=== PATIENT | female | born 1970 | race Caucasian/White ===

== ENCOUNTER 2022-10-10 14:56 | Outpatient (CLI) | payer MEDICAID, SELFPAY ==
--- NOTE | 2022-10-10 | MR_ITS ---
WS: [id number] MRI CERVICAL SPINE NONCONTRAST TECHNIQUE: Sagittal T1, T2 and STIR imaging. Axial T2, gradient, and fiesta imaging. CLINICAL INFORMATION: SPONDYLOSIS COMPARISON: None. FINDINGS: Straightening of the normal cervical lordosis. Cord signal is normal. Mild disc bulging C5-C6 and C6- C7 appears progressed compared to 2014. Mild cervical curve. C2-C3: Normal. C3-C4: Mild facet arthropathy. Spinal canal and foramen are patent. C4-C5: No significant disc bulging. Mild facet arthropathy. Mild LEFT and no significant RIGHT forami nal narrowing. Spinal canal is patent. C5-C6: Shallow RIGHT pericentral protrusion with a small annular fissure. Impingement on the RIGHT ve ntral cervical cord with mild central canal stenosis. Moderate facet arthropathy. Mild LEFT and no si gnificant RIGHT foraminal narrowing. C6-C7: Disc osteophyte complex with endplate ridging eccentric to the LEFT. Moderate LEFT and mild RI GHT bony foraminal narrowing. Shallow central protrusion. C7-T1: No significant disc bulging. Moderate LEFT and mild RIGHT bony foraminal narrowing. Mild facet arthropathy. Additional tiny shallow central protrusions at T2-T3 and T3-T4 upper thoracic spine. Mild LEFT T3-T4 foraminal narrowing with a tiny LEFT foraminal protrusion. Visualized brain stem structures: Normal. Prevertebral soft tissues: Normal. MR/MR cervical spin wo con* [id number] IMPRESSION: 1. Straightening of the normal cervical lordosis. Cord signal is normal. 2. RIGHT pericentral protrusion C5-C6 with indentation on cervical cord progre ssed since 2013 with mild central canal stenosis. Tiny amount of myelomalacia i n the cervical cord at this level. 3. Tiny shallow central protrusion C6-C7 with slight effacement of the ventral thecal sac. 4. Moderate LEFT C6-C7 and LEFT C7-T1 bony foraminal narrowing. 5. Tiny shallow central protrusions in the upper thoracic spine at T2-T3 and T 3-T4 without significant central canal stenosis. 6. Mild LEFT T3-T4 foraminal narrowing with a tiny LEFT proximal foraminal pro trusion. 7. Mild to moderate facet arthropathy C4-C6.
--- NOTE | 2022-10-10 | MR_ITS ---
WS: [id number] MRI LUMBAR SPINE NONCONTRAST TECHNIQUE: Sagittal T1, T2 and STIR imaging. Axial T1 and T2 imaging. CLINICAL INFORMATION: SPONDYLOSIS COMPARISON: None. FINDINGS: Mild lumbar curve. No acute compression. Grade 2 anterolisthesis L5 on S1 measuring 12.5 mm. This is slightly progressed compared to 2014. Previously this measured approximately 11.1 mm. Chronic spondyl olysis at this level. L1-L2: No significant disc bulging. Moderate facet arthropathy. Spinal canal and foramen are patent. L2-L3: Mild annular bulging. Moderate facet arthropathy. Small facet effusions. Tiny LEFT foraminal p rotrusion with mild LEFT foraminal narrowing. Progressed compared to previous. L3-L4: No significant disc bulging. Moderate facet arthropathy. Spinal canal and foramen are patent. L4-L5: Mild annular bulging with slight effacement of the ventral thecal sac. Slight impingement on t he traversing L5 nerve roots bilaterally. This is stable compared to previous. Moderate facet arthrop athy. Mild RIGHT and no significant LEFT foraminal narrowing. L5-S1: Chronic spondylolysis with grade 2 anterolisthesis. Moderate LEFT greater than RIGHT foraminal narrowing with impingement on the exiting LEFT greater than RIGHT L5 nerve roots. Moderate central c anal stenosis. This appears slightly progressed compared to previous. Disc space narrowing at this le amita has progressed. Disc space narrowing at T11-T12 has also progressed slightly compared to previous. Visualized pelvic bony structures: Normal. Paravertebral soft tissues: Normal. MR/MR lumbar spine wo con* [id number] IMPRESSION: 1. Grade 2 anterolisthesis L5 on S1 with chronic spondylolysis slightly progre ssed compared to previous. Disc Space narrowing at this level has progressed. 2. Progressed moderate central canal stenosis L5-S1 with moderate LEFT greater than RIGHT foraminal narrowing. 3. Mild annular bulging L4-L5 with a shallow central protrusion and slight enc roachment traversing L5 nerve roots bilaterally. This is unchanged from previou s.. 4. Small LEFT foraminal protrusion L2-L3 slightly contacts the exiting LEFT L2 nerve root progressed compared to previous. 5. Moderate facet arthropathy L2-L3, L3-L4, L4-L5, and advanced L5-S1.
== END 2022-10-10 14:57 | disposition home or self-care (01) ==
LOC: RAD 14:57
PROVIDERS: PCP Family Medicine; Visit Provider Family Medicine
DX: M47.816 Spondylosis without myelopathy or radiculopathy, lumbar region (principal); M47.812 Spondylosis without myelopathy or radiculopathy, cervical region; M51.26 Other intervertebral disc displacement, lumbar region; M48.07 Spinal stenosis, lumbosacral region; M47.817 Spondylosis without myelopathy or radiculopathy, lumbosacral region; M50.222 Other cervical disc displacement at C5-C6 level; M51.24 Other intervertebral disc displacement, thoracic region
CPT/HCPCS: 72141; 72148

== ENCOUNTER 2023-10-09 06:00 | Outpatient (RCR) | payer MEDICAID, SELFPAY | END 2023-10-20 23:59 | disposition home or self-care (01) | LOC: GPT 06:00 | PROVIDERS: PCP Family Medicine; Visit Provider General Practice | DX: M54.9 Dorsalgia, unspecified (principal); G89.29 Other chronic pain | CPT/HCPCS: 97162 ==

== ENCOUNTER 2023-10-21 06:00 | Outpatient (RCR) | payer MEDICAID, SELFPAY | END 2023-11-19 23:59 | disposition home or self-care (01) | LOC: GPT 06:00 | PROVIDERS: PCP Family Medicine; Visit Provider General Practice | DX: M54.9 Dorsalgia, unspecified (principal); G89.29 Other chronic pain | CPT/HCPCS: 97110 ==

== ENCOUNTER 2023-11-26 10:31 | Outpatient (CLI) | payer MEDICAID, SELFPAY ==
--- NOTE | 2023-11-26 10:40 | XRR_ITS ---
PROCEDURE INFORMATION: Exam: XR Lumbosacral Spine Exam date and time: 11/26/2023 10:48 AM Age: 52 years old Clinical indication: Low back pain; Prior surgery; Surgery date: 6+ months; Surgery type: Spinal fusion l4-s1 in November of 2022; Patient HX: --pain on left side and weakness in legs for several years feels no difference from surgery; Additional info: Arthrodesis status TECHNIQUE: Imaging protocol: Radiologic exam of the lumbosacral spine. Views: 2 or 3 views. COMPARISON: MR lumbar spine wo con* [id number] 10/10/2022 3:35 PM FINDINGS: Bones/joints: Posterior spinal fixation hardware extending from L4-S1. The lumbar spine demonstrates a mildly exaggerated lordotic curvature. Grade 2 anterolisthesis of L5 on S1. The vertebral bodies maintain normal height. The intervertebral discs maintain normal height. Soft tissues: Unremarkable. XR/XR lumbar spine 2-3V* [id number] IMPRESSION: Lumbosacral fixation hardware appears intact.
--- NOTE | 2023-11-26 10:40 | XRR_ITS ---
PROCEDURE INFORMATION: Exam: XR Bilateral Hips Exam date and time: 11/26/2023 10:48 AM Age: 52 years old Clinical indication: Hip pain; Bilateral; Prior surgery; Surgery date: 6+ months; Surgery type: Spinal fusion l4-s1 in November of 2022; Patient HX: Pain on left side and weakness in legs for several years feels no difference from surgery; Additional info: Hip pain, to include pelvis TECHNIQUE: Imaging protocol: Radiologic exam of the bilateral hips. Views: 2 views of hips with pelvis when performed. COMPARISON: CR XR lumbar spine 2-3V* [id number] 11/26/2023 10:48 AM FINDINGS: Bones/joints: The pelvis is grossly intact. The hip joints maintain normal alignment. No proximal femoral fracture identified. Soft tissues: Unremarkable. XR/XR hip BI 2V wo/w pel [id number] IMPRESSION: No fracture identified.
== END 2023-11-26 10:32 | disposition home or self-care (01) ==
LOC: RAD 10:33
PROVIDERS: PCP Family Medicine; Visit Provider Nurse Practitioner Family
DX: Z98.1 Arthrodesis status (principal); M25.552 Pain in left hip; M25.551 Pain in right hip
CPT/HCPCS: 72100; 73521

== ENCOUNTER 2025-06-25 23:07 | Emergency (ER) | payer MEDICAID, SELFPAY ==
--- OUTSIDE RECORDS SUMMARY | 2025-06-25 23:11 | XMS_ITS | Clinical Summary ---
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 90 Tablet 3 10/07/2018 Active oxyCODONE (ROXICODONE) 15 mg tablet 1 Tablet 1 tab in am, 1 tab at noon, 1 tab at 3 and one tab at bed. 0 08/22/2018 Active loperamide HCl (IMODIUM ORAL) Take by mouth. 10/07/2018 Active aspirin/salicyl amide/caffeine (BC HEADACHE POWDER ORAL) Take by mouth 1 package in am and pm . 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 Gender Identity Not on file Sexual Orientation Not on file Last Filed Vital Signs Vital Sign Reading Time Taken Comments Blood Pressure 132/72 10/07/2018 10:26 AM CDT Pulse 101 10/07/2018 10:26 AM CDT Temperature 36.1 C (96.9 F) 10/07/2018 10:26 AM CDT Respiratory Rate 18 10/07/2018 10:26 AM CDT Oxygen Saturation - - Inhaled Oxygen Concentration - - Weight 77.6 kg (171 lb) 10/07/2018 10:26 AM CDT Height 167.6 cm (5' 6 ) 10/07/2018 10:26 AM CDT Body Mass Index 27.6 10/07/2018 10:26 AM CDT Plan of Treatment Health Maintenance Due Date Last Done Comments DTAP/TDAP/TD VACCINES (1 - Tdap) 12/30/1987 HEPATITIS B VACCINES (1 of 3 - 19+ 3-dose series) 12/20 HPV/Cotest (21-29) 1989 CERVICAL CANCER SCREENING 1998 HPV/Cotest (30-65) 1998 PAP SMEAR 1998 BREAST CANCER SCREENING 2008 COLORECTAL SCREENING 2013 Colorectal Cancer Screening 2013 FIT-DNA Q 3 years 2013 FIT/FOBT Q 1 year 2013 Flex Sig/CT Colonography Q 5 years 2013 ZOSTER VACCINE (1 of 2) 2018 INFLUENZA VACCINE (#1) 2025
--- OUTSIDE RECORDS SUMMARY | 2025-06-25 23:11 | XMS_ITS | Clinical Summary ---
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 0 08/22/2018 Active aspirin/salicyl amide/caffeine (BC HEADACHE POWDER ORAL) Take by mouth 1 package in am and pm . Active loperamide HCl (IMODIUM ORAL) Take by mouth. Active PARoxetine HCl (PAXIL) 20 mg tabletIndicatio ns:Irritable bowel syndrome with diarrhea,ANABELL (generalized anxiety disorder) Take 1 Tablet (20 mg) by mouth daily. 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
[2025-06-25 23:16] VITALS: BP 152/105; PULSE 75; RESP 18; TEMP 36.6; O2SAT 97; BMI 32.5
--- NOTE | 2025-06-25 23:56 | XRR_ITS ---
PROCEDURE INFORMATION: Exam: XR Left Hand Exam date and time: 06/25/2025 11:55 PM Age: 54 years old Clinical indication: Injury or trauma; Hand; Small laceration to anterior aspect of base of left thumb; Additional info: R thumb base injury TECHNIQUE: Imaging protocol: Radiologic exam of the left hand. Views: 3 or more views. COMPARISON: No relevant prior studies available. FINDINGS: Bones/joints: Normal. Soft tissues: Soft tissue air in the thumb/thenar eminence, correlate with physical exam. XR/XR hand LT min 3V* [id number] IMPRESSION: Soft tissue air in the thumb/thenar eminence, correlate with physical exam.
[2025-06-26] MEDS: oxyCODONE-APAP 5-325 mg Tablet 2 TAB PO (00:23)
--- NOTE | 2025-06-26 00:25 | ED_ITS ---
HPI - Wound/Laceration General: Chief Complaint: Wound/Laceration Stated Complaint: laceration Time Seen by Provider: 06/25/25 23:10 History of Present Illness: 54yo female Patient presents after accid entally stabbing herself in the hand while cutting a zip tie during bed assembly. Patient reports that she had just sharpened her knife today prior to the incident. The laceration bled profusely initially, causing the patient to feel lightheaded during transport to the facility, though this has since improved. Patient denies nausea but reports ongoing pain at the wound site. she maintains full range of motion in the affected digits, though movement is painful. Physical Exam Const: COMMON NORMALS: no acute distress GENERAL APPEARANCE: cooperative; not ill appearing and not frail appearing HENMT: COMMON NORMALS: normocephalic, atraumatic and Normal external nose present HEAD & SCALP: normocephalic and atraumatic FACE & SINUS: normal facial exam and face symmetric NOSE: Normal external nose present Eye: COMMON NORMALS: Equal, round and reactive pupils present and EOMs intact bilaterally PUPIL: Yes Equal, round and reactive pupils present Neck/C-Spine: GENERAL: Yes trachea midline Chest: CHEST: Yes Symmetrical chest wall rise Resp: COMMON NORMALS: normal respiratory effort, No retractions and No use of accessory muscles Cardio: COMMON NORMALS: regular rate and regular rhythm RATE: regular rate RHYTHM: regular rhythm Extremity: NARRATIVE EXTREMITY EXAM: Examination left hand reveals a small, 1 inch laceration of the radial side of the thenar eminence on the palmar side. Bleeding is controlled on exam. Thumb flexion, extension and abduction and adduction are all intact. No signs of tendon injury. Neuro: JUDY COMA SCALE: document GCS findings Judy coma scale eye opening: Spontaneous [place] coma scale verbal response: Orientated [place] coma scale motor response: Obey commands Judy coma scale total score: 15 SENSORY EXAM: Yes extremities (intact) Psych: COMMON NORMALS: speech normal SPEECH: Yes normal speech Procedures Laceration Laceration 1: Site: hand Side (If applicable): left Size (cm): 2 Description: linear Depth: simple, single layer Local Anesthetic: lidocaine 1% Amount of anesthesia used (mL): 4 Pre-repair: wound explored, irrigated extensively and deep structures intact Skin layer closed with: nylon Size (cm): 5-0 Number of sutures: 4 Technique: simple, interrupted Course Vital Signs: Vital signs: Vital Signs Temperature 98 F 06/25/25 23:16 Pulse Rate 75 06/25/25 23:16 Respiratory Rate 18 06/25/25 23:16 Blood Pressure 152/105 06/25/25 23:16 Pulse Oximetry 97 06/25/25 23:16 MDM - Wound/Laceration Medical Decision Making X-ray negative for fracture. Tetanus updated. Laceration repaired without complication. No continued bleeding. Stable for discharge. Return for problems. XR interpretation done by ED provider, pending radiology final review Discharge Plan Discharge Patient Disposition: Home Clinical Impression: Hand laceration Qualifiers: Encounter type: initial encounter Foreign body presence: without foreign body Laterality: left Qualified Code(s): S61.412A - Laceration without foreign body of left hand, initial encounter Condition: Stable Discharge Orders: Discharge ED (Routine); Ordered 06/26/25 Ordered By: Tino Nails Referrals: Augie Bar MD [Primary Care Provider, [facility]] - 7-10 days Patient Instructions: Laceration (ED), Opioid Safety, Pain Management, Patient Portal & [place] Instructions Activity Restrictions/Additional Instructions: Keep dry for 24 hours. Then you may wash with soap and running water. Do not soak. Return for increasing swelling, redness, streaking, pain, fever, drainage. Sutures should come out in 7 to 10 days. See your doctor for this. Call Saturday for follow-up appointment. 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
[2025-06-26] MEDS: tetanus-dipt-pertussis 0.5 mL SDV IM (00:34)
== END 2025-06-26 00:41 | disposition home or self-care (01) ==
PROVIDERS: Emergency Provider Emergency Medicine; PCP Family Medicine
DX: S61.412A Laceration without foreign body of left hand, initial encounter (principal); W26.0XXA Contact with knife, initial encounter
CPT/HCPCS: 12001; 73130; 90471; 90715; 99283; J9999